=== PATIENT | male | born 1985 | race Caucasian/White ===

== ENCOUNTER 2020-02-01 16:57 | Emergency (ER) | payer OTHER ==
[2020-02-01 17:08] VITALS: RESP 18; TEMP 98.2
[2020-02-01 18:17] LABS: Appearance,Urine Clear (Clear); Bilirubin,Urine Negative (Negative); Blood,Urine Negative (Negative); Color,Urine Light Yellow; Glucose,Urine (UA) Negative (Negative); Ketones,Urine Negative (Negative); Leukocyte Esterase,Urine Negative (Negative); Nitrite,Urine Negative (Negative); PH, Urine 6.5 (5.0-8.0); Protein,Urine Negative (Negative); Specific Gravity,Urine 1.016 (1.001-1.035)
[2020-02-01 18:33] LABS: Amphetamine Screen,Urine Detected (NotDetected); Barbiturate Screen,Urine Not Detected (NotDetected); Benzodiazepines Screen,Urine Not Detected (NotDetected); Cocaine Screen,Urine Not Detected (NotDetected); Methadone Screen, Urine Not Detected (NotDetected); Opiate Screen,Urine Not Detected (NotDetected); Oxycodone Screen, Urine Not Detected (NotDetected); Phencyclidine Screen,Urine Not Detected (NotDetected); Tricyclic Antidepressant,Urine Not Detected (NotDetected); Urn Cannabinoid Scrn Detected (NotDetected)
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
[2020-02-01 20:47] VITALS: BP 174/99; PULSE 84
== END 2020-02-01 20:20 | disposition home or self-care (01) ==
LOC: EC 16:57
DX: F43.20 Adjustment disorder, unspecified (principal); F43.0 Acute stress reaction; F17.200 Nicotine dependence, unspecified, uncomplicated
CPT/HCPCS: 80306; 81003; 82075; 99284

== ENCOUNTER 2021-01-04 10:47 | Inpatient (IN) | payer MEDICAID, OTHER ==
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
[2021-01-04] MEDS ORDERED: ACETAMINOPHEN TAB 325 MG TAB PO PRN (16:33)
[2021-01-04] MEDS ORDERED: MAG HYDROX/AL HYDROX/SIMETH 30 ML CUP PO PRN (16:33)
[2021-01-04] MEDS ORDERED: MAGNESIUM HYDROXIDE 2,400 MG/10 ML CUP PO PRN (16:33)
[2021-01-04] MEDS ORDERED: ALBUTEROL INHALER 60 PUFF/8 GM INHALER (MHU) INHALATION PRN (16:35)
[2021-01-04] MEDS ORDERED: LORazepam 2 MG/ML INJ IM PRN (16:40)
[2021-01-04] MEDS ORDERED: HALOPERIDOL LACTATE 5 MG/ML 1 ML VIAL IM PRN (16:44)
[2021-01-04] MEDS ORDERED: haloperidoL 5 MG TAB PO PRN (16:45)
[2021-01-04] MEDS: LORazepam 1 MG TAB PO PRN (17:28)
[2021-01-04] MEDS: SYMBICORT 160-4.5 MCG INHALER (MHU) INHALATION SCH (21:41)
[2021-01-05] MEDS: LEVOTHYROXINE 25 MCG TAB PO SCH (06:40)
[2021-01-05] MEDS: LORazepam 1 MG TAB PO PRN ×2 (06:43→16:22)
[2021-01-05 07:03] VITALS: RESP 16
[2021-01-05 08:19] LABS: ALT 27 U/L (4-49); AST 19 U/L (17-59); African American GFR (CKD) >90 (>60 ml/min/1.73 sqM); Albumin 4.9 g/dL (3.5-5.0); Alkaline Phosphatase 33 U/L (38-126); Anion Gap 10 mmol/L; Blood Urea Nitrogen 14 mg/dL (9-20); Carbon Dioxide 29 mmol/L (22-30); Chloride 101 mmol/L (98-107); Cholesterol 178 mg/dL (<200); Glucose 101 mg/dL (74-99); HDL Cholesterol 26 mg/dL (40-60); LDL Cholesterol,Calculated 104 mg/dL (0-99); Non-African American GFR(CKD) 84 (>60 ml/min/1.73 sqM); Potassium 4.9 mmol/L (3.5-5.1); Sodium 140 mmol/L (137-145); Total Bilirubin 2.4 mg/dL (0.2-1.3); Total Protein 8.1 g/dL (6.3-8.2); Triglycerides 238 mg/dL (<150)
[2021-01-05 08:30] LABS: Basophils % (A) 1 %; Eosinophils # (A) 0.1 k/uL (0-0.7); Eosinophils % (A) 1 %; HCT 50.7 % (39.0-53.0); HGB 17.5 gm/dL (13.0-17.5); Lymphocytes # (A) 2.4 k/uL (1.0-4.8); Lymphocytes % (A) 38 %; MCH 29.9 pg (25.0-35.0); MCHC 34.4 g/dL (31.0-37.0); MCV 86.7 fL (80.0-100.0); Mean Platelet Volume 6.4; Monocytes # (A) 0.4 k/uL (0-1.0); Monocytes % (A) 6 %; Neutrophils # (A) 3.3 k/uL (1.3-7.7); Neutrophils % (A) 52 %; Platelet Count 278 k/uL (150-450); RBC 5.85 m/uL (4.30-5.90); RDW 12.6 % (11.5-15.5); WBC 6.2 k/uL (3.8-10.6)
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
[2021-01-05] MEDS ORDERED: PARoxetine 20 MG TAB PO SCH (09:00)
[2021-01-05] MEDS: NICOTINE 14MG/24HR PATCH TRANSDERM SCH (09:05)
[2021-01-05] MEDS: SERTRALINE 50 MG TAB PO SCH (09:05)
[2021-01-05] MEDS: SYMBICORT 160-4.5 MCG INHALER (MHU) INHALATION SCH ×3 (09:05→22:39)
[2021-01-05 15:29] LABS: Hemoglobin A1C 4.5 % (4.0-6.0)
[2021-01-05] MEDS: QUEtiapine 25 MG TAB PO SCH (22:34)
--- NOTE | 2021-01-06 00:20 | P.MDCNMH ---
History of Present Illness H&P Date: 01/05/21 Chief Complaint: Severe depression with suicide attempt Patient is a 35-year-old male with a known history of hypertension, COPD, hypothyroidism and ADD/ADHD, bipolar disorder, marijuana use and tobacco chewing was brought to ER by police after he did attempted to forearm with a knife. Right forearm with a knife prior to arrival. Patient states that his would like to move on with her new boyfriend. Patient states that he lost his job and is also thinking that his job and kids also recently. Right forearm. Feeling very depressed and attempted suicide by cutting his right forearm. Patient otherwise denies any complaints of chest pain or shortness breath. No nausea vomiting or abdominal pain or diarrhea. No dysuria or hematuria. Denies any recent illnesses. Review of Systems Constitutional: Patient denies any fever or chills . No generalized weakness or weight loss. Abdomen: Patient denied nausea vomiting and diarrhea and abdominal pain. Cardiovascular: Patient denies any chest pain or short of breath no palpitations. Respiratory: patient denied any cough or sputum production. No shortness of breath Neurologic: Patient denied any numbness or tingling headache. Musculoskeletal: Patient denies any complaints of joint swelling or deformity. Skin: Negative Psychiatric:Depression Endocrine: No heat or cold intolerance. No recent weight gain. Genitourinary: No dysuria or hematuria. All other 14 point ROS negative except the above Past Medical History Past Medical History: Asthma, Hypertension, Thyroid Disorder History of Any Multi-Drug Resistant Organisms: None Reported Additional Past Surgical History / Comment(s): abdominal sx Past Anesthesia/Blood Transfusion Reactions: No Reported Reaction Past Psychological History: ADD/ADHD, Bipolar, Depression Smoking Status: Never smoker Past Alcohol Use History: Rare Additional Past Alcohol Use History / Comment(s): Drinks 1-2 beers less than monthly. Past Drug Use History: Marijuana Additional Drug Use History / Comment(s): Pt. states he's used MJ 3 times a day for the last 1.5 weeks. Medications and Allergies Home Medications Medication Instructions Recorded Confirmed Type Albuterol Sulfate [Proair Hfa] 2 puff INHALATION RT-BID PRN 01/04/21 01/04/21 History Budesonide/Formoterol Fumarate 2 puff INHALATION RT-BID 01/04/21 01/04/21 History [Symbicort 160-4.5 Mcg Inhaler] Chlorthalidone [Hygroton] 25 mg PO DAILY 01/04/21 01/04/21 History Dextroamphetamine/Amphetamine 20 mg PO BID 01/04/21 01/04/21 History [Adderall] Ergocalciferol [Vitamin D2 (1250 1,250 mcg PO Q14D 01/04/21 01/04/21 History Mcg = 84226 Iu)] Levothyroxine Sodium [Synthroid] 25 mcg PO DAILY 01/04/21 01/04/21 History PARoxetine [Paxil] 20 mg PO DAILY 01/04/21 01/04/21 History lisinopriL 40 mg PO DAILY 01/04/21 01/04/21 History risperiDONE [RisperDAL] 2 mg PO DAILY 01/04/21 01/04/21 History traZODone HCL [Desyrel] 50 - 100 mg PO HS PRN 01/04/21 01/04/21 History Allergies Allergy/AdvReac Type Severity Reaction Status Date / Time No Known Allergies Allergy Verified 01/04/21 19:06 Physical Exam Vitals: Vital Signs Temp Pulse Pulse Resp BP BP Pulse Ox 01/05/21 06:32 97.7 F 107 H 16 144/84 01/04/21 17:25 98.1 F 80 20 135/93 100 01/04/21 11:05 98.0 F 118 H 17 151/96 97 Intake and Output 01/04/21 01/05/21 01/05/21 22:59 06:59 14:59 Other: Weight 96.247 kg PHYSICAL EXAMINATION: Patient is lying in the bed comfortably, no acute distress, awake alert and oriented.. HEENT: Normocephalic. Neck is supple. Pupils reactive. Nostrils clear. Oral cavity is moist. Ears reveal no drainage. Neck reveals no JVD, carotid bruits, or thyromegaly. CHEST EXAMINATION: Trachea is central. Symmetrical expansion. Lung hinojosa clear to auscultation and percussion. CARDIAC: Normal S1, S2 with no gallops. No murmurs ABDOMEN: Soft. Bowel sounds normal. No organomegaly. No abdominal bruits. Extremities: reveal no edema. No clubbing or cyanosis. Neurologically awake, alert, oriented x3 with well-coordinated movements. No focal deficits noted Skin: No rash or skin lesions. Cut moncada noted on the right forearm with no active bleeding. Psychiatric: Coperative. Nonsuicidal Musculoskeletal: No joint swelling or deformity. Normal range of motion. Cranial Nerve Examination - Cranial Nerves Cranial Nerve I- Olfactory: Intact Cranial Nerve II- Optic: Intact Cranial Nerve III- Oculomotor: Intact Cranial Nerve IV- Trochlear: Intact Cranial Nerve V- Trigeminal: Intact Cranial Nerve - Abducens: Intact Cranial Nerve VII- Facial: Intact Cranial Nerve VIII- Auditory: Intact Cranial Nerve IX- Glossopharyngeal: Intact Cranial Nerve X- Vagus: Intact Cranial Nerve XI- Accessory: Intact Cranial Nerve XII- Hypoglossal: Intact Results CBC & Chem 7: 01/05/21 07:33 01/05/21 07:33 Labs: Abnormal Lab Results - Last 24 Hours (Table) 01/05/21 Range/Units 07:33 Glucose 101 H (74-99) mg/dL Total Bilirubin 2.4 H (0.2-1.3) mg/dL Alkaline Phosphatase 33 L (38-126) U/L Triglycerides 238 H (<150) mg/dL LDL Cholesterol, Calc 104 H (0-99) mg/dL HDL Cholesterol 26 L (40-60) mg/dL Assessment and Plan Assessment: Severe depression with suicide attempt by cutting his forearm with a knife. Hypertension uncontrolled. Patient is lisinopril and chlorthalidone at home. Continue with lisinopril for now COPD not in exacerbation continue with Symbicort and albuterol breathing treatments as needed. Hypothyroidism currently on levothyroxine ADD/ADHD Bipolar disorder, depression DVT prophylaxis with early ambulation Plan: Patient will be continued on current psychiatric management and plan. TSH level is within normal limits and will continue with levothyroxine 25 mcg daily. Start back on lisinopril and hold hydrochlorothiazide. LDL is 104. Diet and lifestyle modification recommended and outpatient follow-up. We will continue the current management and further recommendations based on the clinical course. Thank you for your consult.
[2021-01-06] MEDS: LEVOTHYROXINE 25 MCG TAB PO SCH (06:26)
[2021-01-06 07:28] LABS: ALT 24 U/L (4-49); AST 19 U/L (17-59); African American GFR (CKD) >90 (>60 ml/min/1.73 sqM); Albumin 4.6 g/dL (3.5-5.0); Alkaline Phosphatase 34 U/L (38-126); Anion Gap 9 mmol/L; Blood Urea Nitrogen 15 mg/dL (9-20); Calcium 9.6 mg/dL (8.4-10.2); Carbon Dioxide 29 mmol/L (22-30); Chloride 100 mmol/L (98-107); Glucose 91 mg/dL (74-99); Non-African American GFR(CKD) 88 (>60 ml/min/1.73 sqM); Potassium 4.8 mmol/L (3.5-5.1); Sodium 138 mmol/L (137-145); Total Protein 7.5 g/dL (6.3-8.2)
[2021-01-06] MEDS: NICOTINE 14MG/24HR PATCH TRANSDERM SCH (09:26)
[2021-01-06] MEDS: SYMBICORT 160-4.5 MCG INHALER (MHU) INHALATION SCH ×2 (09:26→21:51)
[2021-01-06] MEDS: SERTRALINE 50 MG TAB PO SCH (09:27)
[2021-01-06] MEDS: lisinopriL 20 MG TAB PO SCH (09:27)
[2021-01-06 14:36] VITALS: BMI 29.0
--- NOTE | 2021-01-06 15:16 | P.PN ---
Progress Note - Text Progress Note Date: 01/06/21 Clinical Problems: Major depressive disorder recurrent severe with psychotic features, rule out bipolar disorder current episode depressed, rule out schizoaffective disorder cannabis use disorder, tobacco use Interim history: I reviewed the medical record, interviewed the patient and discuss his treatment and treatment plan during team meeting. He denied problems or concerns other than discharge. He denied feeling depressed or having thoughts of or suicide. He regrets that he cut himself with a knife prior to admission. He continues to attribute the level his frustration and anger to conflict with his ex- over child custody arrangements. Since admission he spoke to his sister who volunteered to activities in intermediary regarding visitation arrangements. mastic worker reported that he has an outstanding warrant. I asked him about the warrant. He stated did not inform me of the warrant because he thought it was "not important". He would not talk about the nature of the warrant but a review of the [facility] docket indicates recurrent charges of domestic viol ence. Medical consult appreciated. Mental status exam: He presented as a somewhat guarded appearing 35-year-old male who was pleasant on approach. He made eye contact and attended interview. The lacerations on left forearm are healing during no signs of infection. He had a blunted facial expression. He had psychomotor retardation and no involuntary movements. His gait was slow but steady. His speech was spontaneous with decreased rate, volume and rhythm. His affect was sad but reactive. He denied suicidal ideation or wishes. He denied feeling hopeless, helpless or worthless. His thinking was concrete but his associations were coherent. He denied hallucinations did not appear to be responding to internal stimuli. Assessment: He appears more depressed than he reports. I suspect that he is not disclosing his concerns. He has outstanding legal problems and may face arrests at discharge. Plan: Continue inpatient treatment. Continue Zoloft 50 mg daily and Seroquel 25 mg at bedtime. Continue other medications as recommended by medicine service including Ventolin, Symbicort, Synthroid and Zestril. Encourage participation in therapeutic groups and activities. Evaluate clinical status response to treatment daily basis.
[2021-01-06] MEDS: LORazepam 1 MG TAB PO PRN (16:30)
[2021-01-06 20:34] LABS: Appearance,Urine Clear (Clear); Bilirubin,Urine Negative (Negative); Blood,Urine Negative (Negative); Color,Urine Colorless; Glucose,Urine (UA) Negative (Negative); Ketones,Urine Negative (Negative); Leukocyte Esterase,Urine Negative (Negative); Nitrite,Urine Negative (Negative); Protein,Urine Negative (Negative); Specific Gravity,Urine 1.005 (1.001-1.035); Urobilinogen,Urine <2.0 mg/dL (<2.0)
[2021-01-06] MEDS: QUEtiapine 25 MG TAB PO SCH (21:51)
[2021-01-07] MEDS: LEVOTHYROXINE 25 MCG TAB PO SCH (06:38)
[2021-01-07 06:55] VITALS: BP 132/70; PULSE 78; TEMP 97.9
[2021-01-07 07:46] LABS: Urine Alcohol Negative (Negative); Urine Barbiturate Negative (Negative); Urine Cocaine Negative (Negative); Urine Methadone Negative (Negative); Urine Opiates Negative (Negative); Urine Phencyclidine Negative (Negative)
[2021-01-07] MEDS: SYMBICORT 160-4.5 MCG INHALER (MHU) INHALATION SCH (08:36)
[2021-01-07] MEDS: NICOTINE 14MG/24HR PATCH TRANSDERM SCH (08:36)
[2021-01-07] MEDS: SERTRALINE 50 MG TAB PO SCH (08:37)
[2021-01-07] MEDS: lisinopriL 20 MG TAB PO SCH (08:37)
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
--- NOTE | 2021-01-07 18:36 | CONS ---
CONSULTATION CHIEF COMPLAINT: Major depression. HISTORY OF PRESENT ILLNESS: This is the first known psych admission for this 35-year-old white male. He has gone through significant stress and difficulty of late. His left him for a ne'er do well methamphetamine user. They have two kids together and she took the children. He also has gotten into some further difficulty because of a missed court date regarding his probation. He has also lost his job. He became extremely depressed, but he does feel like he is coming to measurement specialist with these issues and can probably move on, hoping that he can maintain his job or jobs. REVIEW OF SYSTEMS: He denies any headaches, change in vision or hearing, chest pain, shortness of breath, cough, hemoptysis, abdominal pain, nausea, vomiting, hematemesis, melena, hematochezia, jaundice, hepatitis, urinary complaints, frequency, urgency, dysuria, incontinence, nocturia or renal failure. He is not diabetic. Past medical history, family history, and personal and social histories are all essentially otherwise unremarkable or noncontributory. He is not on any medication and he is not allergic to any. When he was last seen in August, he was on Risperdal, lisinopril 40 mg once a day, Adderall 20 mg b.i.d., Symbicort 160/4.5 two puffs twice a day, chlorthalidone 25 mg once a day, levothyroxine 0.025 once a day, vitamin D, and Paxil 20 mg once a day. He does smoke. PHYSICAL EXAMINATION: Blood pressure 124/80, pulse of 88, respirations of 18. He is afebrile. In general he appeared to be well developed, well nourished, in no acute distress. Skin color is normal. Skin is warm and dry. Lymph nodes are not enlarged. Head, ears, eyes, nose, mouth and throat are normal and neck veins are not distended. Thyroid is not enlarged. Chest is clear. Cardiac exam is normal. Abdomen is soft, nontender. Extremities are normal. Neurologically he is intact. He is admitted to the hospital with diagnoses: 1. Major depression. 2. History of hypertension. RECOMMENDATIONS: None. He seems to be doing well at this time. Thank you. Respectfully, Yan Cortes II, M.D. LUIS / HARPER: [id number] /
== END 2021-01-07 16:14 | DRG 881 ==
LOC: EC 10:47 → 3MHU 16:27
PROVIDERS: ADMIT Psychiatry & Neurology Psychiatry; ATTEND Psychiatry & Neurology Psychiatry
DX: F32.9 Major depressive disorder, single episode, unspecified (principal); F12.10 Cannabis abuse, uncomplicated; F17.210 Nicotine dependence, cigarettes, uncomplicated; F17.220 Nicotine dependence, chewing tobacco, uncomplicated; F43.10 Post-traumatic stress disorder, unspecified; I10 Essential (primary) hypertension; S51.811A Laceration without foreign body of right forearm, initial encounter; X78.1XXA Intentional self-harm by knife, initial encounter; Z56.0 Unemployment, unspecified; Z62.810 Personal history of physical and sexual abuse in childhood; Z65.3 Problems related to other legal circumstances; Z63.5 Disruption of family by separation and divorce; Z79.51 Long term (current) use of inhaled steroids; Z79.890 Hormone replacement therapy; Z79.899 Other long term (current) drug therapy; Z91.410 Personal history of adult physical and sexual abuse; Z91.411 Personal history of adult psychological abuse; F41.9 Anxiety disorder, unspecified; Z20.822 Contact with and (suspected) exposure to COVID-19; J45.909 Unspecified asthma, uncomplicated
CPT/HCPCS: 80053; 80061; 80306; 81003; 82075; 83036; 84443; 85025; 87635; 99285